=== PATIENT | female | born 1965 | race Caucasian/White ===

== ENCOUNTER 2018-04-01 20:05 | Emergency (ER) | payer OTHER ==
[~2018-04-01] VITALS: Ht 182.9 cm; Wt 74.8 kg
[2018-04-01] MEDS ORDERED: SILVER SULFADIAZINE 1% CREAM 50 GM TP ONE ×2 (20:15→20:30)
[2018-04-01] MEDS ORDERED: ONDANSETRON ODT 4 MG TAB.RAPDIS SL ONE (20:15)
[2018-04-01] MEDS ORDERED: OXYCODONE/APAP 5-325 MG TABLET PO ONE (20:15)
[2018-04-01] MEDS ORDERED: SILVER SULFADIAZINE 1% CREAM 25 GM TUBE TP ONE ×2 (20:20→20:37)
[2018-04-01] MEDS ORDERED: OXYCODONE/APAP 5-325 MG TABLET ONE (20:24)
[2018-04-01] MEDS ORDERED: ONDANSETRON ODT 4 MG TAB.RAPDIS ONE (20:24)
--- NOTE | 2018-04-01 21:35 | NUR ---
Pharmacist here. Only has 1 Silvadene cream available. aware.
--- NOTE | 2018-04-01 21:55 | NUR ---
Patient discharged to home in stable conditon. Written and verbal after care instructions given. Patient verbalizes understanding of instructions. Pt ambulated out of ER in steady gait. All belongings with pt. Pt's daughter to drive home. NAD noted. VSS.
[2018-04-01 22:37] VITALS: BP 138/88
== END 2018-04-01 22:37 | disposition home or self-care (01) ==
LOC: ER 20:06
DX: T24.112A Burn of first degree of left thigh, initial encounter (principal); T24.111A Burn of first degree of right thigh, initial encounter; X08.8XXA Exposure to other specified smoke, fire and flames, initial encounter; Y93.89 Activity, other specified; Y92.89 Other specified places as the place of occurrence of the external cause; Y99.8 Other external cause status
CPT/HCPCS: A4663; Q0162